=== PATIENT | male | born 2005 | race Caucasian/White ===

== ENCOUNTER 2024-01-29 13:47 | Emergency (ER) | payer MEDICAID, SELFPAY ==
[2024-01-29 13:48] VITALS: BP 162/81; PULSE 65; RESP 16; TEMP 36.3; O2SAT 100; BMI 27.0
--- NOTE | 2024-01-29 15:52 | US_ITS ---
INDICATION: left testicular palpable lump EXAMINATION: Ultrasound US Scrotum (Contents) TECHNIQUE: Realtime ultrasound of the testicles was performed with grayscale, Color Doppler and spectral Doppler analysis. COMPARISON: None. FINDINGS: RIGHT: TESTIS: Measures 4.5 x 2.5 x 3 cm. Normal in size and echotexture, without focal lesion. There is a scrotal richard. COLOR DOPPLER: Normal arterial flow present in the testicle with monophasic waveforms. EPIDIDYMIS: Normal in size and echotexture, without focal lesion. [Normal color Doppler flow pattern in the epididymis. HYDROCELE: None. VARICOCELE: None. LEFT: TESTIS: Measures 4.6 x 2 x 2.9 cm . Normal in size and echotexture, without focal lesion. COLOR DOPPLER: Normal arterial flow present in the testicle with monophasic waveforms. EPIDIDYMIS: Normal in size and echotexture, without focal lesion. [Normal color Doppler flow pattern in the epididymis. HYDROCELE: None. VARICOCELE: None. US/Testicular with Arterial Flow IMPRESSION: Scrotal richard. Electronically Signed: Raul Reynoso MD at 17:10 EDT ,
--- NOTE | 2024-01-29 15:52 | EX.ED.GUMALE ---
HPI <JOSESITO Myers - Last Filed: 01/29/24 17:55> History of Present Illness Chief Complaint: Male Pain/Injury Narrative Narrative: Patient is a 18-year-old male with no significant ankle history presents to the emergency department with his father for concern of swelling to his left testicle. Patient dates for 2 to 3 years he noticed that his left testicle is larger, patient states over the last 2 to 3 months, and he is notices gotten bigger, he is having some dull aching intermittently, he currently does not have a PCP and goes to college in [facility]. He is currently here on fall, talk with his father who then referred him to the emergency department. Patient denies any dysuria, patient denies any difficulty maintaining or getting an erection. Patient is here for evaluation. PFSH <JOSESITO Myers - Last Filed: 01/29/24 17:55> [facility] Home Medications ?Medication ?Instructions ?Recorded ?Last Taken ?Type NK 01/29/24 Unknown History Allergy/AdvReac Type Severity Reaction Status Date / Time No Known Allergies Allergy Verified 01/29/24 13:51 Social History Smoking Status: Never smoker ROS <JOSESITO Myers - Last Filed: 01/29/24 17:55> ROS ED ROS Narrative Constitutional: Negative for fever, chills, weight loss, weakness Eyes: Negative for vision loss, vision change, double vision ENT: Negative for any sore throat, ear pain, congestion Cardiovascular: Negative for any chest pain, tightness, palpitations Respiratory: Negative for any cough, sputum production, hemoptysis, dyspnea, dyspnea on exertion, orthopnea Gastrointestinal: Negative for any abdominal pain, nausea, vomiting, diarrhea, constipation, blood in stool, blood in vomit : Negative for any urinary frequency, dysuria, retention, blood in urine. Positive for testicular pain Muscle skeletal: Negative for any neck pain, back pain Neurological: Negative for any headache, syncope, dizziness Skin: Negative for any rashes, itching, abrasions, lacerations Psychiatric: Negative for any depression, anxiety, stress, suicidal ideation, homicidal ideation Hematologic: Negative for any excessive bruising, easy bleeding EXAM <JOSESITO Myers Last Filed: 01/29/24 17:55> Physical Exam Narrative Exam Narrative: Vital signs reviewed. HEET: Head normocephalic atraumatic, TMs clear bilaterally. Posterior pharynx is clear, moist mucous membranes. Nares clear bilaterally. Neck: Supple with no lymphadenopathy or tenderness. No signs of meningismus. Cardiac: Regular rate and rhythm no murmurs gallops or rubs, equal peripheral pulses bilaterally. Respiratory: Lungs clear to auscultation bilaterally. No chest tenderness. Abdomen: Soft, nontender, nondistended. No abdominal bruit or pulsatile masses. No hepatosplenomegaly Extremities: No peripheral edema, no signs of gross trauma or deformity. Active full range of motion of all extremities. Neuro: Cranial nerves II through XII intact, no focal neurological deficits. Skin: Clean dry and intact with no rash, purpura, petechiae, vesicles or pustules. Backs/flank: No CVA tenderness, no midline spinal tenderness, no deformity. Psych: Normal mood and affect. No SI, HI or acute psychosis. Testicular: Patient's physical examination shows that the left testicle is larger than the right. The left testicle hangs lower than the right. Reflexes unremarkable. There is no significant pain, there is no erythema. Penis is unremarkable. Const Vital Signs: 01/29/24 13:48 Temperature 97.4 F L Temperature Source Oral Pulse Rate 65 Respiratory Rate 16 Blood Pressure 162/81 H Blood Pressure Mean 108 Pulse Ox 100 Oxygen Delivery Method Room Air Positive well nourished and well developed General Appearance ED: well developed <William Rolle MD - Last Filed: 01/29/24 22:13> Physical Exam Const Vital Signs: 01/29/24 13:48 Temperature 97.4 F L Temperature Source Oral Pulse Rate 65 Respiratory Rate 16 Blood Pressure 162/81 H Blood Pressure Mean 108 Pulse Ox 100 Oxygen Delivery Method Room Air MDM <JOSESITO Myers - Last Filed: 01/29/24 17:55> [facility] Lab Data Labs: Laboratory Results - last 24 hr 01/29/24 16:45 Urine Color Straw Urine Clarity Clear Urine pH 7.0 Ur Specific [place] 1.005 Urine Protein Negative Urine Glucose (UA) Normal Urine Ketones Negative Urine Occult Blood Negative Urine Nitrite Negative Urine Bilirubin Negative Urine Urobilinogen Normal Ur Leukocyte Esterase Negative Urine RBC 0 SEEN Urine WBC 0 SEEN Ur Squamous Epith Cells 0-5 SEEN Urine Bacteria 0 SEEN Urine Mucus 0 SEEN Radiography Diagnostic Testing: Clinical Impression(s) from Imaging Studies Testicular Ultrasound 01/29/24 15:52 IMPRESSION: Scrotal richard. Electronically Signed: Raul Reynoso MD at 17:10 EDT , Treatment and Re-Evaluation Narrative: Differential diagnosis includes however is not limited to: Orchitis, testicular mass, STD, epididymitis Patient appears generally well, vital signs are stable, patient is nontoxic-appearing. Presenting to the emergency department with complaints of left testicular pain, swelling over the last 2 to 3 years much worse over the last 2 to 3 months. Patient received a urinalysis, ultrasound of the testicles with blood flow will also be ordered. All radiologic examinations were read, reviewed by the emergency department attending. From these reads, a plan of care will be put in place. Patient's urinalysis was negative, patient's ultrasound shows scrotal richard, no other acute process. No other edema, focal lesion, mass. On reevaluation, I spoke with the patient as well as the patient's father, he will follow-up outpatient with Dr. Oliveira. Patient is happy the plan of care, all questions answered, stable for discharge. <William Rolle MD - Last Filed: 01/29/24 22:13> [facility] MDM Narrative Medical decision making narrative: Dr. Rolle: I have personally performed a face to face assessment of the patient and have reviewed the ZACHARIAH Note. I performed a substantive portion of the visit including all aspects of the following. My hudson findings include: History is lump on spermatic cord/left testicle times months, possibly growing. No dysuria or hematuria. Exam is chaperoned examination reveals no testicular tenderness, no overt growth or erythema of scrotum. Cardiovascular examination regular rate and rhythm. Lungs clear to auscultation bilaterally. Medical Decision Making: Check ultrasound. Check UA. Follow-up urology. Other additions or changes: [None] History & Record Review Discussion w/independent historian: Patient Lab Data Attestation: I reviewed the patient's lab results. Labs: Laboratory Results - last 24 hr 01/29/24 16:45 Urine Color Straw Urine Clarity Clear Urine pH 7.0 Ur Specific [place] 1.005 Urine Protein Negative Urine Glucose (UA) Normal Urine Ketones Negative Urine Occult Blood Negative Urine Nitrite Negative Urine Bilirubin Negative Urine Urobilinogen Normal Ur Leukocyte Esterase Negative Urine RBC 0 SEEN Urine WBC 0 SEEN Ur Squamous Epith Cells 0-5 SEEN Urine Bacteria 0 SEEN Urine Mucus 0 SEEN Radiography Diagnostic Testing: Clinical Impression(s) from Imaging Studies Testicular Ultrasound 01/29/24 15:52 IMPRESSION: Scrotal richard. Electronically Signed: Raul Reynoso MD at 17:10 EDT , Discharge Plan Triage Chief Complaint: Male Pain/Injury Other Complaint: Complaint ED Midlevel Provider: Deepak Huynh ED Provider: William Rolle Dx/Rx/DC Orders Clinical Impression: Scrotal edema Instructions: ED Testicular Pain, Unclear Cause Prescriptions: No Action NK Referrals: Miguel Oliveira MD [Med Staff - Active Staff] - Activity Restrictions/Additional Instructions: Please follow-up outpatient. Return for any worsening symptoms Print Language: Moroccan Disposition Disposition: Home, Self Care Discharge Date/Time: 01/29/24 18:00
[2024-01-29 16:56] LABS: Bacteria 0 SEEN /hpf (None Seen); Mucous, Urine 0 SEEN /hpf (<or=2+); Red Blood Cells-Urine 0 SEEN /hpf (0-5); White Blood Cells 0 SEEN /hpf (0-5)
[2024-01-29 17:00] LABS: Color, Urine Straw (Yellow); Glucose, Dipstick Normal (Normal); Ketone-Dipstick Negative (Negative); Leukocyte Esterase-Dipstick Negative /ul (Negative); Nitrite-Dipstick Negative (Negative); Occult Blood-Urine Negative /ul (Negative); Protein-Dipstick Negative (Negative); Specific Gravity, Urine 1.005 (1.002-1.030); Urine Bilirubin Dipstick Negative (Negative); Urine Clarity Clear (Clear); Urine Urobilinogen Normal (Normal)
[2024-01-29 17:17] LABS: Squamous Epithelial Cells - UA 0-5 SEEN /hpf (0-5)
== END 2024-01-29 18:00 | disposition home or self-care (01) ==
PROVIDERS: Nurse Practitioner; Emergency Provider Emergency Medicine; Visit Provider Emergency Medicine
DX: N50.89 Other specified disorders of the male genital organs (principal)
CPT/HCPCS: 76870; 81001; 93976; 99283